=== PATIENT | male | born 1975 | race Two or more races ===

== ENCOUNTER 2018-03-24 16:44 | Emergency (ER) | payer SELFPAY ==
[2018-03-24] MEDS ORDERED: NS 1,000 ML IV ONE ×2 (16:53)
[2018-03-24] MEDS ORDERED: LORazepam 2 MG/ML INJ IVP ONE ×3 (16:53→18:18)
--- NOTE | 2018-03-24 17:01 | EDPHY ---
H & P Time Seen by Provider: 03/24/18 16:53 HPI/ROS: Chief complaint. Alcohol withdrawal HPI. Patient 43-year-old male here emergent by EMS more than a 12 pack of beer per day and because he is supposed to be taking plane flight tomorrow he decided not to drink alcohol. This morning at around 10 he started having headache and some visual changes and some shakiness. He felt that he might have a seizure. He feels he is having some visual hallucinations but tells me that his vision is normal in between times. He has no chest pain or shortness of breath. He has abdominal pain of at the umbilicus. I saw the patient in the ED about 1 month ago for concern for umbilical hernia. It was reducible and he was seen by surgeon and it was recommended he follow up in the office for scheduling for surgery. He has not followed up. He denies fever. He denies weakness to arms or legs. He is generally quite shaky however ROS Constitutional. no fever/chills, no weakness Eyes. Visual hallucinations ENT. no sore throat, no nasal drainage Cardiovascular. no chest pain Respiratory. no shortness of breath, no cough Abdominal. Pain at umbilical hernia . no problems urinating MS. no calf pain/swelling, no neck/back pain, no joint pain Skin. no rash Lymph. no swollen glands Neuro. Tremulousness and headache Past Medical/Surgical History: Alcoholism, umbilical hernia Social History: , daily smoker. No alcohol since yesterday Smoking Status: Current some day smoker Physical Exam: General Appearance: Well-developed male moderate distress. Vital signs show tachycardia and elevated blood pressure Eyes: Pupils equal and round no pallor or injection. ENT, Mouth: Mucous membranes are moist. Respiratory: There are no retractions, lungs are clear to auscultation. Cardiovascular: Regular rate and rhythm. Gastrointestinal: Abdomen is soft with tenderness at small umbilical hernia. It is reducible by me. Otherwise no masses and normal bowel sounds Neurological: Awake and alert, sensory and motor exams grossly normal. Speech is normal. Cranial nerves are normal. There is no pronator drift. Finger-to- nose and [id number] are significant for tremulousness but strength appears to be normal Skin: Warm and dry, no rashes. Musculoskeletal: Neck is supple nontender. Extremities symmetrical, full range of motion. Psychiatric: Oriented x3 and tremulous Constitutional: Initial Vital Signs Temperature (C) 37.6 C 03/24/18 16:47 Heart Rate 96 03/24/18 16:47 Respiratory Rate 16 03/24/18 16:47 Blood Pressure 159/91 H 03/24/18 16:47 O2 Sat (%) 96 03/24/18 16:47 O2 Delivery Mode Room Air O2 (L/minute) 2 Allergies/Adverse Reactions: No Known Allergies Allergy (Verified 03/08/18 15:56) Home Medications: Medication Instructions Recorded Hydrocodone/APAP 5/325 [Jasper 1 each PO Q4-6PRN PRN #10 tab 03/08/18 5/325 (*)] Medical Decision Making - Diagnostics EKG Interpretation: EKG interpreted by me shows normal sinus rhythm normal interval the and axis. QRS is normal no significant ST elevation or depression. No arrhythmia. The rate is 93 Imaging Results: Imaging Impressions Chest X-Ray 03/24/18 16:53 Impression: Negative. Head CT 03/24/18 16:54 Impression: 1. No acute intracranial findings. If symptoms persist and clinical suspicion warrants, consider MRI. 2. Scattered small benign-appearing bilateral parenchymal calcifications. Findings discussed with CLAIRE BIRD 03/24/2018 at 17:15. Head CT interpreted by me is negative discussed with Radiology Chest x-ray interpreted by me is negative Procedures: IV normal saline, monitor. Ativan IV and Librium orally 2nd round of Ativan and Librium ED Course/Re-evaluation: Re-evaluation at 8:35 p.m.. Patient is awake and alert and talking. No hallucinations. Tremulousness is well controlled. Patient feeling better. Patient and I discussed imaging and lab results. We discussed treatment plan including importance of going to [facility] on Librium protocol. He expresses understanding and agreement Differential Diagnosis: I considered intracranial bleeding, DTs, electrolyte abnormalities, CVA - Data Points Laboratory Results: Laboratory Results 03/24/18 16:55 03/24/18 16:55 03/24/18 03/24/18 03/24/18 16:56 16:55 16:55 WBC RBC Hgb POC Hgb 16.7 gm/dL gm/dL (13.7-17.5) Hct POC Hct 49 % % (40-51) MCV MCH MCHC RDW Plt Count MPV Neut % (Auto) Lymph % (Auto) [place] % (Auto) Eos % (Auto) Baso % (Auto) Nucleat RBC Rel Count Absolute Neuts (auto) Absolute Lymphs (auto) Absolute Monos (auto) Absolute Eos (auto) Absolute Basos (auto) Absolute Nucleated RBC Immature Gran % Immature Gran # PT 13.6 SEC SEC (12.0-15.0) INR 1.02 (0.83-1.16) APTT 27.7 SEC SEC (23.0-38.0) POC Sodium 137 mEq/L mEq/L (135-145) Sodium 135 mEq/L mEq/L (135-145) POC Potassium 3.8 mEq/L mEq/L (3.3-5.0) Potassium 4.2 mEq/L mEq/L (3.3-5.0) POC Chloride 103 mEq/L mEq/L (97-110) Chloride 98 mEq/L mEq/L (97-110) Carbon Dioxide 24 mEq/l mEq/l (22-31) Anion Gap 13 mEq/L mEq/L (8-16) POC BUN 11 mg/dL mg/dL (7-23) BUN 12 mg/dL mg/dL (7-23) Creatinine 0.7 mg/dL mg/dL (0.7-1.3) POC Creatinine 0.7 mg/dL mg/dL (0.7-1.3) Estimated GFR > 60 Glucose 103 mg/dL H mg/dL (70-100) POC Glucose 104 mg/dL H mg/dL (70-100) Calcium 9.8 mg/dL mg/dL (8.5-10.4) Total Bilirubin 1.5 mg/dL H mg/dL (0.1-1.4) Conjugated Bilirubin 0.3 mg/dL mg/dL (0.0-0.5) Unconjugated Bilirubin 1.2 mg/dL H mg/dL (0.0-1.1) AST 79 IU/L H IU/L (17-59) ALT 56 IU/L IU/L (21-72) Alkaline Phosphatase 67 IU/L IU/L (38-126) Total Protein 8.0 g/dL g/dL (6.3-8.2) Albumin 4.8 g/dL g/dL (3.5-5.0) Lipase 331 IU/L H IU/L (23-300) Ethyl Alcohol < 10 mg/dL mg/dL (0-10) 03/24/18 16:55 WBC 10.52 10^3/uL H 10^3/uL (3.80-9.50) RBC 4.75 10^6/uL 10^6/uL (4.40-6.38) Hgb 15.4 g/dL g/dL (13.7-17.5) POC Hgb Hct 44.6 % % (40.0-51.0) POC Hct MCV 93.9 fL fL (81.5-99.8) MCH 32.4 pg pg (27.9-34.1) MCHC 34.5 g/dL g/dL (32.4-36.7) RDW 13.2 % % (11.5-15.2) Plt Count 206 10^3/uL 10^3/uL (150-400) MPV 9.5 fL fL (8.7-11.7) Neut % (Auto) 81.5 % H % (39.3-74.2) Lymph % (Auto) 8.0 % L % (15.0-45.0) [place] % (Auto) 9.2 % % (4.5-13.0) Eos % (Auto) 0.0 % L % (0.6-7.6) Baso % (Auto) 0.7 % % (0.3-1.7) Nucleat RBC Rel Count 0.0 % % (0.0-0.2) Absolute Neuts (auto) 8.58 10^3/uL H 10^3/uL (1.70-6.50) Absolute Lymphs (auto) 0.84 10^3/uL L 10^3/uL (1.00-3.00) Absolute Monos (auto) 0.97 10^3/uL H 10^3/uL (0.30-0.80) Absolute Eos (auto) 0.00 10^3/uL L 10^3/uL (0.03-0.40) Absolute Basos (auto) 0.07 10^3/uL 10^3/uL (0.02-0.10) Absolute Nucleated RBC 0.00 10^3/uL 10^3/uL (0-0.01) Immature Gran % 0.6 % % (0.0-1.1) Immature Gran # 0.06 10^3/uL 10^3/uL (0.00-0.10) PT INR APTT POC Sodium Sodium POC Potassium Potassium POC Chloride Chloride Carbon Dioxide Anion Gap POC BUN BUN Creatinine POC Creatinine Estimated GFR Glucose POC Glucose Calcium Total Bilirubin Conjugated Bilirubin Unconjugated Bilirubin AST ALT Alkaline Phosphatase Total Protein Albumin Lipase Ethyl Alcohol Medications Given: Discontinued Medications Chlordiazepoxide (Librium 25 Mg Prepack#6) 1 btl TAKEHOME EDNOW ONE Stop: 03/24/18 20:26 Last Admin: 03/24/18 20:29 Dose: 1 btl Chlordiazepoxide HCl (Librium) 25 mg PO EDNOW ONE Stop: 03/24/18 18:15 Last Admin: 03/24/18 18:24 Dose: 25 mg Sodium Chloride (Ns) 1,000 mls @ 0 mls/hr IV ONCE ONE; Wide Open PRN Reason: Protocol Stop: 03/24/18 16:54 Last Admin: 03/24/18 16:56 Dose: 1,000 mls Sodium Chloride (Ns) 1,000 mls @ 0 mls/hr IV EDNOW ONE; Wide Open PRN Reason: Protocol Stop: 03/24/18 16:54 Last Admin: 03/24/18 16:57 Dose: Not Given Lorazepam (Ativan Injection) 2 mg IVP EDNOW ONE Stop: 03/24/18 16:54 Last Admin: 03/24/18 16:55 Dose: 2 mg Lorazepam (Ativan Injection) 1 mg IVP EDNOW ONE Stop: 03/24/18 18:15 Last Admin: 03/24/18 18:18 Dose: Not Given Lorazepam (Ativan Injection) 2 mg IVP ONCE ONE Stop: 03/24/18 18:19 Last Admin: 03/24/18 18:24 Dose: 2 mg Ondansetron HCl (Zofran) 4 mg IVP EDNOW ONE Stop: 03/24/18 19:10 Last Admin: 03/24/18 19:14 Dose: 4 mg Point of Care Test Results: Chemistry 03/24/18 16:56 POC Sodium 137 mEq/L mEq/L (135-145) POC Potassium 3.8 mEq/L mEq/L (3.3-5.0) POC Chloride 103 mEq/L mEq/L (97-110) POC BUN 11 mg/dL mg/dL (7-23) POC Creatinine 0.7 mg/dL mg/dL (0.7-1.3) POC Glucose 104 mg/dL H mg/dL (70-100) ISTAT H&H 03/24/18 16:56 POC Hgb 16.7 gm/dL gm/dL (13.7-17.5) POC Hct 49 % % (40-51) Departure - Departure Disposition: Home, Routine, Self-Care Clinical Impression: Alcohol withdrawal Qualifiers: Complication of substance-induced condition: uncomplicated Qualified Code(s): F10.230 - Alcohol dependence with withdrawal, uncomplicated Instructions: Chlordiazepoxide (By mouth), Abuse of Alcohol (ED), Alcohol Withdrawal (ED) Additional Instructions: Librium 1 pill every 4-6 hours as needed for tremulousness and withdrawal symptoms Return for worsening symptoms Referrals: Patient,NotPresent [Primary Care Provider] - As per Instructions [facility] [Outside] - 1-2 days without fail
[2018-03-24 17:11] LABS: PLATELET COUNT 206 10^3/uL (150-400)
[2018-03-24 17:13] LABS: INR 1.02 (0.83-1.16); PROTIME(PATIENT) 13.6 SEC (12.0-15.0)
[2018-03-24] MEDS ORDERED: chlordiazePOXIDE 25 MG CAP PO ONE (18:14)
[2018-03-24] MEDS ORDERED: ONDANSETRON 4 MG/2 ML VIAL IVP ONE (19:09)
[2018-03-24] MEDS ORDERED: CHLORDIAZEPOXIDE 25MG PREPK#6 BTL TAKEHOME ONE (20:25)
[2018-03-24 20:33] VITALS: BP 124/74
--- NOTE | 2018-03-24 22:31 | CPEKG ---
Test Reason : OPEN Blood Pressure : / mmHG Vent. Rate : 093 BPM Atrial Rate : 093 BPM P-R Int : 129 ms QRS Dur : 100 ms QT Int : 369 ms P-R-T Axes : 054 034 011 degrees QTc Int : 459 ms Sinus rhythm Probable left ventricular hypertrophy ST elev, probable normal early repol pattern Confirmed by Rodríguez Rockwell ([id number] on 03/24/2018 10:30:22 PM Referred By: Confirmed By:Rodríguez Rockwell
== END 2018-03-24 21:27 | disposition home or self-care (01) ==
LOC: EDUNIT#
DX: R51 Headache (principal); R93.0 Abnormal findings on diagnostic imaging of skull and head, not elsewhere classified; F10.230 Alcohol dependence with withdrawal, uncomplicated; F17.200 Nicotine dependence, unspecified, uncomplicated
CPT/HCPCS: 82435-PO; 82565-PO; 82947-PO; 84132-PO; 84295-PO; 84520-PO; 85014-PO; 96374; G0480; J2060; J2405